=== PATIENT | male | born 1985 | race Caucasian/White ===

== ENCOUNTER 2022-08-21 21:05 | Emergency (ER) | payer OTHER ==
[2022-08-21 21:21] VITALS: BP 105/75; PULSE 90; RESP 16; TEMP 98.6; BMI 24.4
[2022-08-21] MEDS ORDERED: AMOX TR/POT CLAV 875MG/125MG TABLETS (FP) PO ONE (21:53)
[2022-08-21] MEDS ORDERED: AMOX TR/POT CLAV 875MG/125MG TABLETS (FP) ONE ×2 (21:55→21:57)
== END 2022-08-21 22:01 | disposition home or self-care (01) ==
LOC: FER 21:05
PROC: 0HQ1XZZ Repair Face Skin, External Approach (ICD-10-PCS; principal; 2022-08-21)
DX: S01.112A Laceration without foreign body of left eyelid and periocular area, initial encounter (principal); W54.0XXA Bitten by dog, initial encounter
CPT/HCPCS: 99283-25